=== PATIENT | female | born 1975 | race African-American/Black ===

== ENCOUNTER 2016-09-15 10:17 | Emergency (ER) | payer OTHER ==
[2016-09-15 10:27] VITALS: BP 134/91; PULSE 100; TEMP 98.4; BMI 30.7
--- NOTE | 2016-09-15 11:20 | PDOC ---
History of Present Illness - General Chief Complaint: Sore Throat Stated Complaint: SORE THROAT Time Seen by Provider: 09/15/16 11:04 History Source: Patient Exam Limitations: No Limitations - History of Present Illness Initial Comments: 09/15/16 11:14 Patient is a 40 y/o female with history of environmental allergens states that she's been taking Claritin and has not been helping her symptoms. Patient reports feeling "scratchy throat", nasal congestion, generalized fatigue. Denies any fever. No chest pain or shortness of breath. No dysphasia. Past Medical History: Denies. Allergies: No known allergies Medications: Claritin Family History: Non-contributory Social History: Denies smoking, alcohol use, or IVDU Review of Systems GENERAL/CONSTITUTIONAL: No fever or chills. No weakness. No weight change. HEAD, EYES, EARS, NOSE AND THROAT: No change in vision. No ear pain or discharge. Scratchy throat, no dysphagia CARDIOVASCULAR: No chest pain or shortness of breath. RESPIRATORY: No cough, wheezing, or hemoptysis. GASTROINTESTINAL: No nausea, vomiting, diarrhea or constipation. No rectal bleeding. GENITOURINARY: No dysuria, frequency, or change in urination. MUSCULOSKELETAL: No joint or muscle swelling or pain. No neck or back pain. SKIN: No rash or easy bruising. NEUROLOGIC: No headache, vertigo, loss of consciousness, or loss of sensation. HEMATOLOGIC/LYMPHATIC: No anemia, easy bleeding, or history of blood clots. No lymphadenopathy ALLERGIC/IMMUNOLOGIC: No hives or skin allergy. No latex allergy. dry skin around eyes Physical Exam: GENERAL: The patient is awake, alert, and fully oriented, in no acute distress. EYES: Pupils equal, round and reactive to light, extraocular movements intact, sclera anicteric, conjunctiva clear. ENT: Ears normal, nares patent, oropharynx clear without exudates. Moist mucous membranes. No uvula deviation. No sinus pressure or pain NECK: Normal range of motion, supple without lymphadenopathy, JVD, or masses. LUNGS: Breath sounds equal, clear to auscultation bilaterally. No wheezes, and no crackles. HEART: Regular rate and rhythm, normal S1 and S2 without murmur, rub or gallop. ABDOMEN: Soft, nontender, normoactive bowel sounds. No guarding, no rebound. No masses. No bruising or abrasions MUSCULOSKELETAL: Normal range of motion, no edema. No clubbing or cyanosis. No cords, erythema, or tenderness. No CVA Tenderness with fist. NEUROLOGICAL: Cranial nerves II through XII grossly intact. Normal speech, normal gait. SKIN: Warm, Dry, normal turgor, no rashes or lesions noted. Bilateral upper lid dry skin. Past History - Past Medical History Allergies/Adverse Reactions: Allergies Allergy/AdvReac Type Severity Reaction Status Date / Time No Known Allergies Allergy Verified 09/15/16 10:27 Home Medications: Ambulatory Orders Mometasone Furoate 17 gm NS BID #1 spray.pump 09/15/16 Montelukast Na [Singulair -] 10 mg PO HS #30 tablet 09/15/16 Anemia: Yes - Psycho/Social/Smoking Cessation Hx Suicidal Ideation: No Smoking History: Never smoked Information on smoking cessation initiated: No *Physical Exam - Vital Signs Last Vital Signs Temp Pulse Resp BP Pulse Ox 98.4 F 100 H 18 134/91 98 09/15/16 10:20 09/15/16 10:20 09/15/16 10:20 09/15/16 10:20 09/15/16 10:20 Medical Decision Making - Medical Decision Making 09/15/16 11:18 A/P: Patient with clinical signs of environmental allergens. Patient does not meet criteria for strep throat. Denies any dysphagia. No fever. We will DC patient home on Singulair and Nasonex, continue Claritin during the day follow- up with PMD in 1 week if symptoms persist. Motrin for pain. I discussed the physical exam findings, ancillary test results and final diagnoses with the patient. I answered all of the patient's questions. The patient was satisfied with the care received and felt comfortable with the discharge plan and treatment plan. The patient will call to arrange follow-up and will return to the Emergency Department with any new, persistent or worsening symptoms. 09/15/16 11:27 *DC/Admit/Observation/Transfer Diagnosis at time of Disposition: Environmental allergies - Discharge Dispostion Admit: No - Prescriptions Prescriptions: Mometasone Furoate 17 gm NS BID #1 spray.pump Montelukast Na [Singulair -] 10 mg PO HS #30 tablet - Referrals Referrals: Ulices Acosta [Primary Care Provider] - - Patient Instructions Printed Discharge Instructions: Allergies (Alternative Therapy) Additional Instructions: Increase your fluids. Please make sure to take a Claritin during the day, Singulair prior to sleep and Nasonex 1 spray each nostril twice a day Symptoms persist, fever, or any other concerns recommend following up immediately with primary care doctor or within 1 week - Post Discharge Activity Work/School Note: Back to Work
== END 2016-09-15 11:26 | disposition home or self-care (01) ==
LOC: JER 10:17 → JERFT 10:17
DX: J30.89 Other allergic rhinitis (principal)
CPT/HCPCS: 99281-25

== ENCOUNTER → 2018-01-20 | Day surgery (SDC) | payer OTHER | END | disposition home or self-care (01) | LOC: JRADIR 09:59 | PROVIDERS: ATTEND Obstetrics & Gynecology | PROC: 0UJD8ZZ Inspection of Uterus and Cervix, Via Natural or Artificial Opening Endoscopic (ICD-10-PCS; principal; 2018-01-20) | PROC: BU0 Imaging, Female Reproductive System, Plain Radiography (ICD-10-PCS; 2018-01-20) | DX: N97.9 Female infertility, unspecified (principal) | CPT/HCPCS: 36415; 58340; 74740-TC-FY; 76000-TC-FY; 84702 ==

== ENCOUNTER 2018-03-04 01:32 | Emergency (ER) | payer SELFPAY ==
--- NOTE | 2018-03-04 02:11 | PDOC ---
History of Present Illness - General Stated Complaint: HEADACHE Time Seen by Provider: 03/04/18 01:59 History Source: Patient Exam Limitations: No Limitations - History of Present Illness Initial Comments: 03/04/18 03:48 Best Contact: PCP:Dr. Prerna langley Pmhx: anemia Pshx:0 Allergies:nkda FH:0 Social Hx: Cigarettes/ 0 Alcohol/ 0 Drugs/0 LMP: 02/04/2018 42-year-old female presents to the ER with her complaining of right sided occipital headache 1 day without fever, chills, nausea/vomiting, dizziness, lightheadedness, facial pains, blurry vision.,earache, sore throat, neck pain/stiffness, back pain, chest pain, shortness of breath, abdominal pains , flank pains, Aris numbness or tingling sensation. Patient states pain is described as 5/10 dull nonradiating intermittent discomfort. There are no exacerbating or alleviating factors. Patient states this is not the worst headache of her life nor is she having scalp tenderness. Patient states this is one of her [employer] headaches. Patient states she is expecting her period sometime today. Past History - Past Medical History Allergies/Adverse Reactions: Allergies Allergy/AdvReac Type Severity Reaction Status Date / Time No Known Allergies Allergy Verified 03/04/18 02:52 Home Medications: Ambulatory Orders Mometasone Furoate 17 gm NS BID #1 spray.pump 09/15/16 Montelukast Na [Singulair -] 10 mg PO HS #30 tablet 09/15/16 Anemia: Yes - Suicide/Smoking/Psychosocial Hx Smoking History: Never smoked Review of Systems - Review of Systems Able to Perform ROS?: Yes Comments:: 03/04/18 03:53 CONSTITUTIONAL: Absent: fever, chills, diaphoresis, generalized weakness, malaise, loss of appetite HEENT: Absent: rhinorrhea, nasal congestion, throat pain, throat swelling, difficulty swallowing, mouth swelling, ear pain, eye pain, visual Changes CARDIOVASCULAR: Absent: chest pain, loss of consciousness, palpitations, irregular heart rate, peripheral edema RESPIRATORY: Absent: cough, shortness of breath, dyspnea with exertion, orthopnea, wheezing, stridor, hemoptysis GASTROINTESTINAL: Absent: abdominal pain, abdominal distension, nausea, vomiting, diarrhea, constipation, melena, hematochezia GENITOURINARY: Absent: dysuria, frequency, urgency, hesitancy, hematuria, flank pain, genital pain MUSCULOSKELETAL: Absent: myalgia, arthralgia, joint swelling SKIN: Absent: rash, itching, pallor HEMATOLOGIC/IMMUNOLOGIC: Absent: easy bleeding, easy bruising, lymphadenopathy, frequent infections ENDOCRINE: Absent: unexplained weight gain, unexplained weight loss, heat intolerance, cold intolerance NEUROLOGIC: +right occipital gloria Absent: focal weakness or paresthesias, dizziness, unsteady gait, seizure, mental status changes, bladder or bowel incontinence PSYCHIATRIC: Absent: anxiety, depression, suicidal or homicidal ideation, hallucinations. Is the patient limited Nepali proficient: No *Physical Exam - Physical Exam Comments: 03/04/18 03:53 GENERAL: Well developed, well nourished. Awake and alert. No acute distress. HEENT: Normocephalic, atraumatic. PERRLA, EOMI. No conjunctival pallor. Sclera are non- icteric. Moist mucous membranes. Oropharynx is clear. NECK: Supple. Full ROM. No JVD. Carotid pulses 2+ and symmetric, without bruits. No thyromegaly. No lymphadenopathy. CARDIOVASCULAR: Regular rate and rhythm. No murmurs, rubs, or gallops. Distal pulses are 2+ and symmetric. PULMONARY: No evidence of respiratory distress. Lungs clear to auscultation bilaterally. No wheezing, rales or rhonchi. ABDOMINAL: Soft. Non-tender. Non-distended. No rebound or guarding. No organomegaly. Normoactive bowel sounds. MUSCULOSKELETAL Normal range of motion at all joints. No bony deformities or tenderness. No CVA tenderness. EXTREMITIES: No cyanosis. No clubbing. No edema. No calf tenderness. SKIN: Warm and dry. Normal capillary refill. No rashes. No jaundice. NEUROLOGICAL: Neg scalp tenderness Alert, awake, appropriate. Cranial nerves 2-12 intact. No deficits to light touch and temperature in face, upper extremities and lower extremities. No motor deficits in the in face, upper extremities and lower extremities. Normoreflexic in the upper and lower extremities. Normal speech. Toes are down- going bilaterally. Gait is normal without ataxia. PSYCHIATRIC: Cooperative. Good eye contact. Appropriate mood and affect. ED Treatment Course - LABORATORY CBC & Chemistry Diagram: 03/04/18 02:17 03/04/18 02:17 Progress Note - Progress Note Progress Note: 0301hrs: Pt states pain is 2/10 dull non radiating right sided occipital gloria now and wishes to be d/c. Pt encouraged to await for lab results *DC/Admit/Observation/Transfer Diagnosis at time of Disposition: Headache Qualifiers: Headache type: other headache syndrome Qualified Code(s): G44.89 - Other headache syndrome - Discharge Dispostion Disposition: HOME Condition at time of disposition: Fair Decision to Admit order: No - Referrals Referrals: Flakito Langley MD [Primary Care Provider] - Suzanne Pugh MD [Staff Physician] - - Patient Instructions Printed Discharge Instructions: DI for Headache Additional Instructions: Increase fluids Take Tylenol alternating with Motrin as needed for pain every 6 hours Follow-up with the neurologist listed on your discharge Return back to the ER for severe/persistent or worsening symptoms - Post Discharge Activity Forms/Work/School Notes: Back to Work
[2018-03-04] MEDS ORDERED: SODIUM CHLORIDE 1,000 ML IV STA (02:14)
[2018-03-04] MEDS ORDERED: METOCLOPRAMIDE HCL INJECTION 10 MG/2 ML VIAL IVPB ONE (02:14)
[2018-03-04 03:25] VITALS: BP 134/92; PULSE 79; TEMP 99.1; BMI 30.7
[2018-03-04 03:32] LABS: BASO % 0.8 % (0-2.0); EOS % 3.5 % (0-4.5); HEMATOCRIT 34.2 % (32.4-45.2); HEMOGLOBIN 11.2 GM/dL (10.7-15.3); LYMPH % 37.3 % (8-40); MCH 24.1 pg (25.7-33.7); MCHC 32.8 g/dl (32.0-36.0); MEAN CELL VOLUME 73.4 fl (80-96); MEAN PLT VOLUME 10.7 fl (7.5-11.1); MONO % 9.1 % (3.8-10.2); NEUT % 49.3 % (42.8-82.8); PLATELET COUNT 203 K/MM3 (134-434); RBC 4.66 M/mm3 (3.60-5.2); RDW 19.3 % (11.6-15.6); WHITE BLOOD COUNT 6.1 K/mm3 (4.0-10.0)
[2018-03-04] MEDS ORDERED: ONDANSETRON 4 MG/2 ML VIAL ONE (03:33)
[2018-03-04] MEDS ORDERED: METOCLOPRAMIDE HCL INJECTION 10 MG/2 ML VIAL ONE (03:34)
[2018-03-04 03:50] LABS: URINE APPEARANCE SLCLOUDY; URINE BILIRUBIN NEGATIVE (<2.0 mg/dL); URINE COLOR YELLOW; URINE GLUCOSE (UA) NEGATIVE (NEGATIVE); URINE KETONE NEGATIVE (NEGATIVE); URINE LEUK ESTERASE TRACE (NEGATIVE); URINE NITRITE NEGATIVE (NEGATIVE); URINE PROTEIN NEGATIVE (NEGATIVE)
[2018-03-04 03:59] LABS: ALBUMIN 3.6 g/dl (3.4-5.0); ALK PHOS 95 U/L (45-117); ANION GAP 6 MMOL/L (8-16); BILIRUBIN,TOTAL 0.2 mg/dL (0.2-1); BLOOD UREA NITROGEN 10 mg/dL (7-18); CALCIUM 8.7 mg/dL (8.5-10.1); CHLORIDE 107 mmol/L (98-107); CO2 28 mmol/L (21-32); CREATININE 0.8 mg/dL (0.55-1.3); GLUCOSE,RANDOM 91 mg/dL (74-106); POTASSIUM 4.4 mmol/L (3.5-5.1); SGOT/AST 22 U/L (15-37); SGPT/ALT 18 U/L (13-61); SODIUM 140 mmol/L (136-145); TOT PROT 7.5 g/dl (6.4-8.2)
[2018-03-04 04:05] LABS: EPI CELLS RARE /HPF (FEW); URINE BACTERIA RARE /hpf (NONE SEEN); URINE HYALINE CAST 1 /lpf; URINE MUCUS MODERATE
== END 2018-03-04 04:09 | disposition home or self-care (01) ==
LOC: JER 01:32
PROC: 3E033GC Introduction of Other Therapeutic Substance into Peripheral Vein, Percutaneous Approach (ICD-10-PCS; principal; 2018-03-04)
DX: G44.89 Other headache syndrome (principal); D64.9 Anemia, unspecified
CPT/HCPCS: 36415; 80053; 81003; 81015; 84702; 85025; 99281-25; J7030

== ENCOUNTER 2019-01-03 13:38 | Emergency (ER) | payer OTHER ==
[2019-01-03 13:45] VITALS: BP 122/89; PULSE 100; TEMP 98; BMI 31.1
--- NOTE | 2019-01-03 14:21 | PDOC ---
History of Present Illness - General Chief Complaint: Headache Stated Complaint: NOSE BLEED Time Seen by Provider: 01/03/19 13:55 History Source: Patient Exam Limitations: No Limitations - History of Present Illness Initial Comments: 01/03/19 14:22 HISTORY OF PRESENT ILLNESS: This is a 43-year-old woman past medical history of menstrual headaches and nosebleeds during winter presents emergency department for evaluation of resolved nosebleed. Patient reports she sneezed and after she sneezed noted to have small trickle of blood. Patient states the second time and the blood flow increased. Patient applied direct pressure and cold packs to her nose which resolved the bleeding. Patient reports she is currently on her menstrual cycle is having normal menstrual flow. At this time patient is refusing intervention for her menstrual headaches. No recent travel or sick contacts. PAST MEDICAL HISTORY: see HPI SURGICAL HISTORY: Denies ALLERGIES: No known drug allergies REVIEW OF SYSTEMS General/Constitutional: Denies fever or chills. Denies weakness, weight change. HEENT: see HPI Cardiovascular: Denies chest pain or shortness of breath. Respiratory: Denies cough, wheezing, or hemoptysis. Gastrointestinal: Denies nausea, vomiting, diarrhea or constipation. Denies rectal bleeding. Genitourinary: Denies dysuria, frequency, or change in urination. Musculoskeletal: Denies joint or muscle swelling or pain. Denies neck or back pain. Skin and breasts: Denies rash or easy bruising. Neurologic: see HPI Psychiatric: Denies depression or anxiety. Endocrine: Denies increased thirst. Denies abnormal weight change. Hematologic/Lymphatic: Denies anemia, easy bleeding, or history of blood clots. Allergic/Immunologic: Denies hives or skin allergy. Denies latex allergy. PHYSICAL EXAM General Appearance: Well-appearing, appropriately dressed. No apparent distress , no intoxication. HEENT: EOMI, PERRLA, normal ENT inspection, normal voice, TMs normal, pharynx normal. No conjunctival pallor. No photophobia, scleral icterus. Nasal mucosa inflamed. No active bleeding present. No dry blood present. Neck: Supple. Trachea midline. No tenderness, rigidity, carotid bruit, stridor , lymphadenopathy, or thyromegaly. Respiratory/Chest: Lungs CTAB. No shortness of breath, chest tenderness, respiratory distress, accessory muscle use. No crackles, rales, rhonchi, stridor , wheezing, dullness Cardiovascular: RRR. S1, S2. No JVD, murmur, bradycardia, tachycardia. Vascular Pulses: Dorsalis-Pedis (R): 2+, Dorsalis-Pedis (L): 2+ Gastrointestinal/Abdominal: Normal bowel sounds. Abdomen soft, non-distended. No tenderness or rebound tenderness. No organomegaly, pulsatile mass, guarding, hernia, hepatomegaly, splenomegaly. Lymphatic: No adenopathy, tenderness. Musculoskeletal/Extremities: Normal inspection. FROM of all extremities, normal capillary refill. Pelvis Stable. No CVA tenderness. No tenderness to extremities, pedal edema, swelling, erythema or deformity. Integumentary: Appropriate color, dry, warm. 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 Fully oriented, alert. Appropriate mood/affect. Motor strength 5/5. No appreciable EOM palsy, facial droop or sensory deficit. Past History - Past Medical History Allergies/Adverse Reactions: Allergies Allergy/AdvReac Type Severity Reaction Status Date / Time No Known Allergies Allergy Verified 03/04/18 02:52 Home Medications: Ambulatory Orders Mometasone Furoate 17 gm NS BID #1 spray.pump 09/15/16 Montelukast Na [Singulair -] 10 mg PO HS #30 tablet 09/15/16 Anemia: Yes COPD: No CHF: No Other medical history: MARIE when menstruating - Suicide/Smoking/Psychosocial Hx Smoking History: Never smoked Have you smoked in the past 12 months: No Hx Alcohol Use: No Drug/Substance Use Hx: No Substance Use Type: None *Physical Exam - Vital Signs Last Vital Signs Temp Pulse Resp BP Pulse Ox 98 F 100 H 20 122/89 96 01/03/19 13:39 01/03/19 13:39 01/03/19 13:39 01/03/19 13:39 01/03/19 13:39 Medical Decision Making - Medical Decision Making 01/03/19 14:20 A/P: 43-year-old woman with resolved epistaxis, menstrual headache and ALLERGIC rhinitis Nasal mucous membranes are inflamed Oropharynx is within normal limits No sinus tenderness present Patient is refusing treatment for her headaches at this time Discharge home Portions of this note have been documented using voice recognition software. As a result, errors may occur in the senior technical architect process. Effort has been made to correct all grammatical and senior technical architect error, but some may have been missed. *DC/Admit/Observation/Transfer Diagnosis at time of Disposition: Epistaxis not due to trauma Allergic rhinitis Qualifiers: Allergic rhinitis trigger: unspecified Allergic rhinitis seasonality: unspecified Qualified Code(s): J30.9 - Allergic rhinitis, unspecified Menstrual headache Qualifiers: Status migrainosus presence: without status migrainosus Intractability: not intractable Qualified Code(s): G43.829 - Menstrual migraine, not intractable, without status migrainosus - Discharge Dispostion Disposition: HOME Condition at time of disposition: Stable Decision to Admit order: No - Referrals - Patient Instructions Additional Instructions: Rest, drink lots of fluids: Teas, water, soups Saltwater gargles. Consider humidifier in room at night Steamy showers/seem to face break up mucus Avoid contact with allergens, exposure to pollens, close windows on a windy day Lots of handwashing and good hygiene Continue antihistamines daily until pollen season is over; Zyrtec, Claritin, Adenike during the daytime and Benadryl at nighttime as will make sleepy [place] spray nasal spray as directed. Tylenol or Motrin for fever and pain Followup with private physician in one to 2 days as needed Consider following up with an rivers [employer] lakes boatman/pbx manager for skin testing and possible allergy shots Return to emergency department for worsened symptoms, fevers, dehydration - Post Discharge Activity
== END 2019-01-03 14:23 | disposition home or self-care (01) ==
LOC: JERFT 13:38
DX: R04.0 Epistaxis (principal); G43.829 Menstrual migraine, not intractable, without status migrainosus; J30.9 Allergic rhinitis, unspecified
CPT/HCPCS: 99282-25

== ENCOUNTER 2020-12-11 23:04 | Emergency (ER) | payer OTHER ==
[2020-12-11 23:07] VITALS: BP 138/88; TEMP 98.2; BMI 33.1
[2020-12-12 01:08] VITALS: PULSE 99
[2020-12-12 01:21] LABS: BASO % 0.7 % (0-2.0); EOS % 1.5 % (0-4.5); HEMATOCRIT 36.9 % (32.4-45.2); HEMOGLOBIN 12.9 GM/dL (10.7-15.3); LYMPH % 30.3 % (8-40); MCH 27.8 pg (25.7-33.7); MEAN CELL VOLUME 79.4 fl (80-96); MONO % 8.7 % (3.8-10.2); NEUT % 58.8 % (42.8-82.8); PLATELET COUNT 195 10^3/uL (134-434); RBC 4.65 M/mm3 (3.60-5.2); RDW 15.7 % (11.6-15.6); WHITE BLOOD COUNT 6.7 K/mm3 (4.0-10.0)
[2020-12-12 01:31] LABS: CHLORIDE 107 mmol/L (98-107); SODIUM 140 mmol/L (136-145)
[2020-12-12 01:33] LABS: CALCIUM 8.5 mg/dL (8.5-10.1)
[2020-12-12 01:34] LABS: ALBUMIN 3.6 g/dl (3.4-5.0); ANION GAP 5 MMOL/L (8-16); BLOOD UREA NITROGEN 9.9 mg/dL (7-18); CO2 28 mmol/L (21-32); GLUCOSE,RANDOM 115 mg/dL (74-106)
[2020-12-12 01:37] LABS: SGOT/AST 32 U/L (15-37); SGPT/ALT 41 U/L (13-61)
[2020-12-12 01:38] LABS: BILIRUBIN,TOTAL 0.2 mg/dL (0.2-1)
[2020-12-12 01:39] LABS: TOT PROT 7.4 g/dl (6.4-8.2)
[2020-12-12 01:40] LABS: ALK PHOS 72 U/L (45-117)
== END 2020-12-12 02:05 | disposition home or self-care (01) ==
LOC: JER 23:04
DX: R06.02 Shortness of breath (principal); R07.81 Pleurodynia
CPT/HCPCS: 36415; 80053; 84484; 84703; 85025; 85379; 93005; 93010; 99285-25; C9803; U0003; U0005